=== PATIENT | female | born 1980 | race Caucasian/White ===

== ENCOUNTER 2019-04-22 00:25 | Emergency (ER) | payer OTHER ==
[~2019-04-22] VITALS: Ht 160 cm; Wt 102.1 kg
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
[2019-04-22 01:23] LABS: *URINE HCG, QUAL NEGATIVE (NEGATIVE)
[2019-04-22] MEDS ORDERED: HYDROCODONE/APAP 5-325MG TABLET PO ONE (01:30)
[2019-04-22] MEDS ORDERED: HYDROCODONE/APAP 5-325MG TABLET ONE (01:34)
[2019-04-22 01:37] VITALS: BP 131/81
--- NOTE | 2019-04-22 01:38 | NUR ---
Patient discharged to home in stable conditon. Written and verbal after care instructions given. Patient verbalizes understanding of instructions. Patient ambulated with stable gait. Patient will be picked up by friend.
== END 2019-04-22 01:38 | disposition home or self-care (01) ==
LOC: ER 00:27
DX: S09.90XA Unspecified injury of head, initial encounter (principal); Z88.1 Allergy status to other antibiotic agents; V89.2XXA Person injured in unspecified motor-vehicle accident, traffic, initial encounter; Y93.89 Activity, other specified; Y92.89 Other specified places as the place of occurrence of the external cause; Y99.8 Other external cause status
CPT/HCPCS: 84703; A4663